=== PATIENT | female | born 2000 | race Two or more races ===

== ENCOUNTER 2025-02-11 16:59 | Emergency (ER) | payer MEDICAID ==
[~2025-02-11] VITALS: Ht 160 cm; Wt 57.9 kg
[2025-02-11 17:07] VITALS: BP 95/74; PULSE 79; RESP 18; TEMP 98.6; O2SAT 98
--- NOTE | 2025-02-11 17:53 | Physician Documentation ---
HPI ~ General Chief Complaint: Medication Request Stated Complaint: MED REQUEST Time Seen by MD: 17:24 OK to notify your PCP?: Yes Source: patient Mode of Arrival: POV Exam Limitations: no limitations History of Present Illness HPI Comments Presents for medication refill of Biktarvy 50/200/25mg once daily for treatment of HIV. Last dose was 2 weeks ago. She is moving up from [place] and have yet to establish a primary care provider. Medication Reconciliation Allergies: Coded Allergies: No Known Allergies (Unverified , 02/11/25) Review of Systems All Other Systems at this time: Reviewed and Negative Physical Exam Physical Exam Vital Signs: RN Vital Signs have been reviewed: Yes, Temperature: 98.6, Source: Temporal, Heart Rate: 79, Respiratory Rate: 18, BP: 95/74, Pulse Oximetry: 98, Weight: 57.900 Oxygen Flow Rate: 0 Pulse Oximetry Reflects: adequate oxygenation Physical Exam General: Alert, no distress. HEENT: No injection, moist mucous membranes. Neck: Full range of motion. Respiratory: No respiratory distress, equal chest rise and fall. Chest: No accessory muscle use. Cardiovascular: Regular rate and rhythm. Gastrointestinal: Nondistended. Extremities: Normal range of motion, no deformity. Neurologic: Oriented x4. Psychiatric: Normal mood and affect. Skin: Normal color, warm and dry. Progress Results/Orders Reviewed/noted all lab results: Yes Results/Orders Vital Signs 02/11/25 17:07 Temp 98.6 Pulse 79 Resp 18 B/P (MAP) 95/74 Pulse Ox 98 O2 Flow Rate 0 Medical Decision Making Findings They are requesting a prescription of Biktarvy which I sent over to [facility] pharmacy. Last dose was 2 weeks ago and they are going to establish with primary care provider soon. We discussed that they need to have blood work done on an outpatient basis as well for this medication. Differential Dx:Considerations: Include: Economic, Medical services unavail., Medication non-compliance Departure Disposition: HOME / SELF CARE / HOMELESS Impression: Primary Impression: Medication refill Additional Impression: General medical exam Condition: Stable Discharge Instructions: Medicine Refill at the Emergency Department Additional Instructions: Please continue to work on establishing care with a primary care provider. Return back here for any new or worsening symptoms. Referrals: NO PRIMARY CARE PROVIDER (PCP) Prescriptions Bictegrav/Emtricit/Tenofov Ala (Biktarvy 50-200-25 mg Tablet) 50 Mg-200 Mg-25 Mg Tablet 1 TAB PO DAILY for 30 Days, #30 TAB Prov: ANA HERNANDEZ 02/11/25 Education Educated: Patient Educated regarding: diagnosis, treatment, prognosis, need for follow up Additional Comment Medical Screen Exam This patient recieved a medical screening examination. After reviewing the individual's medical complaints with presenting symptoms and performing an appropriate physical examination, it was determined that no immediate life- threatening emergency medical condition is present. This individual is also not a women having contractions. Signature Scribe Signature: . Attestation: Scribed for Ana Hernandez [facility] by Ana Tuttle NP . 02/11/25 17:57 Parts of this note were created using [employer] voice recognition software program. While efforts were made to correct any mistakes made by this voice recognition software program, nonsensical phrases may remain in this note. In addition, there may be errors and syntax, grammar, content and spelling. ANA HERNANDEZP Feb 11, 2025 17:53
[2025-02-11] MEDS ORDERED: BICT1TAB PO (17:56)
== END 2025-02-11 18:07 | disposition home or self-care (01) ==
LOC: ER 17:02
DX: B20 Human immunodeficiency virus [HIV] disease (principal); Z76.0 Encounter for issue of repeat prescription
CPT/HCPCS: 99281

== ENCOUNTER 2025-03-02 22:28 | Emergency (ER) | payer MEDICAID ==
[~2025-03-02] VITALS: Ht 160 cm; Wt 65.2 kg
[~2025-03-02 22:28] MED LIST: BICT1TAB PO
[2025-03-02 22:42] VITALS: TEMP 97.6
[2025-03-02] MEDS ORDERED: BICT1TAB3 PO (22:57)
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
[2025-03-02 23:03] VITALS: BP 118/68; PULSE 79; RESP 18; O2SAT 99
== END 2025-03-02 23:04 | disposition home or self-care (01) ==
LOC: ER 22:29
DX: Z00.8 Encounter for other general examination (principal); Z76.0 Encounter for issue of repeat prescription
CPT/HCPCS: 99281

== ENCOUNTER 2025-04-18 20:24 | Emergency (ER) | payer MEDICAID ==
[~2025-04-18] VITALS: Ht 167.6 cm; Wt 60.0 kg
[~2025-04-18 20:24] MED LIST changes: +BICT1TAB3 PO
[2025-04-18 20:39] VITALS: BP 109/68; PULSE 78; RESP 18; TEMP 98; O2SAT 98
--- NOTE | 2025-04-18 22:21 | Physician Documentation ---
HPI ~ General Chief Complaint: Medication Refill Stated Complaint: MED REQUEST Time Seen by MD: 22:14 History of Present Illness HPI Comments This is a 24-year-old HIV-positive female who presents requesting a refill of Biktarvy, patient reports ran out of medication today. Patient is new to the area and un-housed. Reports no other acute symptoms or concerns. Medication Reconciliation Allergies: Coded Allergies: No Known Allergies (Unverified , 03/02/25) Scheduled Bictegrav/Emtricit/Tenofov Ala (Biktarvy 50-200-25 mg Tablet), 1 TAB PO DAILY Discontinued Medications Bictegrav/Emtricit/Tenofov Ala (Biktarvy 30-120-15 mg Tablet), 1 TAB PO DAILY Discontinued Reason: completed med therapy Past Medical History Past Medical History: HIV Review of Systems ROS As stated above in the HPI, otherwise all systems are reviewed and negative. Physical Exam Physical Exam Vital Signs: Temperature: 98.0, Heart Rate: 78, Respiratory Rate: 18, BP: 109/68, Pulse Oximetry: 98, Weight: 60.000 Oxygen Flow Rate: 0 Physical Exam VITALS: Reviewed and as above. GENERAL: Alert, nontoxic appearing, no apparent distress. RESPIRATORY: No increased work of breathing, no respiratory distress, speaking in full clear sentences Progress Results/Orders Results/Orders Vital Signs 04/18/25 20:39 Temp 98.0 Pulse 78 Resp 18 B/P (MAP) 109/68 Pulse Ox 98 O2 Flow Rate 0 Medical Decision Making Findings This 24 year-old HIV positive patient presented to the emergency department requesting a refill of biktarvy as she is new to the area and her previous prescription has run out. Patient provided resources to establish with primary care for further management of HIV. Prescription refilled at previously prescribed dosage. Patient provided follow up instuctions and return to care precautions. Differential Dx:Considerations: Include: Adverse circumstances, Economic, Psychosocial, Medical services unavail., Medication refill, Medication non- compliance Departure Time of Disposition: 22:19 Disposition: 01 HOME / SELF CARE / HOMELESS Impression: Primary Impression: Medication refill Additional Impression: History of HIV infection Condition: Improved Discharge Instructions: Medicine Refill at the Emergency Department Additional Instructions: Take medications as prescribed, please [facility] up with [facility] for continued management of your HIV medications and for lab work to evaluate effectiveness of your HIV treatment. Please follow up with your primary care provider or [facility] in the next few days. Please return to the emergency department for any new or worsening concerning symptoms. Referrals: NO PRIMARY CARE PROVIDER (PCP) Prescriptions Bictegrav/Emtricit/Tenofov Ala (Biktarvy 50-200-25 mg Tablet) 50 Mg-200 Mg-25 Mg Tablet 1 TAB PO DAILY for 30 Days, #30 TAB Prov: SONYA ESCALANTE 04/18/25 Education Educated: Patient Educated regarding: diagnosis, treatment, prognosis, need for follow up Signature Scribe Signature: No Scribe Attestation: The note accurately reflects work and decisions made by me.YUAN Wilhelm 04/19/25 11:48 SONYA ESCALANTE Apr 18, 2025 22:21
[2025-04-18] MEDS ORDERED: BICT1TAB PO (22:23)
== END 2025-04-18 23:04 | disposition home or self-care (01) ==
LOC: ER 20:24
DX: Z76.0 Encounter for issue of repeat prescription (principal); Z59.00 Homelessness unspecified; Z79.899 Other long term (current) drug therapy
CPT/HCPCS: 99281; 99282

== ENCOUNTER 2025-04-26 13:20 | Emergency (ER) | payer MEDICAID ==
[~2025-04-26] VITALS: Ht 160 cm; Wt 56.4 kg
[~2025-04-26 13:20] MED LIST changes: -BICT1TAB3 PO
[2025-04-26 13:24] VITALS: BP 113/63; PULSE 81; RESP 18; O2SAT 98
--- NOTE | 2025-04-26 14:29 | Physician Documentation ---
History of Present Illness ~ Chief Complaint: See Chief Complaint Stated Complaint: COLD SYMPTOMS Time Seen by MD: 14:16 OK to notify your PCP?: Yes Source: patient Mode of Arrival: POV Exam Limitations: no limitations HPI 24-year-old transgender female presents for sore throat, nausea, headaches, and cough. Denies any vision changes, light sensitivity, "worst headache of her life", vomiting, shortness of breath, chest pain or abdominal pain. Is requesting some ibuprofen, Tylenol and cough syrup only. Medication Reconciliation Allergies: Coded Allergies: No Known Allergies (Unverified , 04/26/25) Scheduled Bictegrav/Emtricit/Tenofov Ala (Biktarvy 50-200-25 mg Tablet), 1 TAB PO DAILY Past Medical History Past Medical History: HIV Review of Systems All Other Systems at this time: Reviewed and Negative Physical Exam Vital Signs: RN Vital Signs have been reviewed: Yes, Temperature: 97.3, Source: Oral, Heart Rate: 81, Respiratory Rate: 18, BP: 113/63, Pulse Oximetry: 98, Weight: 56.400 Oxygen Flow Rate: 0 Pulse Oximetry Reflects: adequate oxygenation Physical Exam General: Alert, no distress. HEENT: No injection, moist mucous membranes. Neck: Full range of motion. Respiratory: No respiratory distress, equal chest rise and fall. Lung sounds clear bilaterally. Chest: No accessory muscle use. Cardiovascular: Regular rate and rhythm. Gastrointestinal: Nondistended. Extremities: Normal range of motion, no deformity. Neurologic: Oriented x4. Psychiatric: Normal mood and affect. Skin: Normal color, warm and dry. Progress Results/Orders Reviewed/noted all lab results: Yes Results/Orders Vital Signs 04/26/25 13:24 Temp 97.3 Pulse 81 Resp 18 B/P (MAP) 113/63 Pulse Ox 98 O2 Flow Rate 0 Medical Decision Making Additional info obtained from: old records Findings We discussed her viral symptoms and she is only requesting Tylenol, ibuprofen and cough syrup due to lack of funds to purchase them herself. I offered to do additional testing, treatment or workup and she declined. Vital signs are stable, physical exam is unremarkable, she is nontoxic appearing. Differential Dx:Considerations: Include: RODRÍGUEZ-Cluster, RODRÍGUEZ-Migraine, RODRÍGUEZ- Hypertensive, CVA Departure Disposition: 01 HOME / SELF CARE / HOMELESS Impression: Primary Impression: Viral illness Condition: Stable Discharge Instructions: Viral Illness, Adult Additional Instructions: Continue to follow up with [facility]. Return back here for any new or worsening symptoms. Referrals: NO PRIMARY CARE PROVIDER (PCP) Prescriptions Guaifenesin/D-Methorphan Hb (Robitussin Dm) 10 Ml Syrup 5 ML PO Q6H PRN PRN for cough & congestion for 6 Days, #120 ML NEEDED Prov: ANA HERNANDEZ 04/26/25 Ibuprofen* (Motrin*) 400 Mg Tablet 1 TAB PO Q8H for pain or fever for 10 Days, #30 TAB Prov: ANA HERNANDEZ 04/26/25 Acetaminophen (Tylenol Arthritis) 650 Mg Tablet.er 1 TAB PO Q8H for 10 Days, #30 TAB 0 Refills Prov: ANA HERNANDEZ 04/26/25 Education Educated: Patient Educated regarding: diagnosis, treatment, prognosis, need for follow up Additional Comment Medical Screen Exam This patient recieved a medical screening examination. After reviewing the individual's medical complaints with presenting symptoms and performing an appropriate physical examination, it was determined that no immediate life- threatening emergency medical condition is present. This individual is also not a women having contractions. Signature Scribe Signature: . Attestation: Scribed for Ana Hernandez by Ana Hernandez - SIM . 04/26/25 14:33 Parts of this note were created using [employer] voice recognition software program. While efforts were made to correct any mistakes made by this voice recognition software program, nonsensical phrases may remain in this note. In addition, there may be errors and syntax, grammar, content and spelling. ANA HERNANDEZ Apr 26, 2025 14:29
[2025-04-26] MEDS ORDERED: ACET-2971 PO (14:31)
[2025-04-26] MEDS ORDERED: IBUP-1984 PO (14:31)
[2025-04-26] MEDS ORDERED: ROBDML PO (14:31)
[2025-04-26 14:37] VITALS: TEMP 97.3
== END 2025-04-26 14:43 | disposition home or self-care (01) ==
LOC: ER 13:20
DX: B34.9 Viral infection, unspecified (principal); Z79.899 Other long term (current) drug therapy
CPT/HCPCS: 99283